=== PATIENT | female | born 1975 | race Caucasian/White ===

== ENCOUNTER 2020-10-26 21:23 | Emergency (ER) | payer OTHER ==
[~2020-10-26 21:23] MED LIST: KEFLEX500 MG PO; TRAMADOL HCL50 MG PO
[2020-10-26 21:59] LABS: BASOPHIL 0.5 % (0-2); HGB 14.8 g/dl (12.5-16.0); LYMPHOCYTE 31.3 % (15-48); MCH 30.1 pg (25.0-31.0); MCHC 32.9 g/dL (32.0-36.0); MCV 91.5 fL (78.0-100.0); MONOCYTE 8.2 % (0-12); MPV 10.3 fL (6.0-9.5); NEUTROPHIL 56.8 % (41-80); NRBC 0; PLT 249 K/uL (150-400); RBC 4.92 M/uL (4.20-5.40); RDW 13.5 % (11.5-14.0)
[2020-10-26 22:03] LABS: INR 0.96 (0.9-1.2); PROTHROMBIN TIME 12.2 SECONDS (11.8-13.4); PTT 27.3 SECONDS (24.4-34.7)
[2020-10-26 22:10] LABS: ALBUMIN 3.7 g/dL (3.4-5.0); BILIRUBIN - TOTAL 0.3 mg/dL (0.2-1.0); BUN/CREAT RATIO (CALC) 16.4 RATIO; CREATININE 1.16 mg/dL (0.51-0.95); GLOBULIN (CALCULATION) 4.2 g/dL; POTASSIUM 3.6 mmol/L (3.5-5.1); TOTAL PROTEIN 7.9 g/dL (6.4-8.2)
== END 2020-10-27 00:15 | disposition home or self-care (01) ==
LOC: FER 21:23
PROVIDERS: Emergency Medicine
DX: R07.89 Other chest pain (principal); R11.0 Nausea; I10 Essential (primary) hypertension; J45.909 Unspecified asthma, uncomplicated; Z87.19 Personal history of other diseases of the digestive system
CPT/HCPCS: 36415; 71045; 80053; 83880; 84484; 85025; 85610; 85730; 93005

== ENCOUNTER 2020-11-08 20:25 | Day surgery (SDCO) | payer OTHER ==
[~2020-11-08] VITALS: Ht 162.6 cm; Wt 112.1 kg
[2020-11-08 21:43] LABS: BASOPHIL 0.6 % (0-2); EOSINOPHIL 2.6 % (0-5); HCT 43.3 % (37.0-47.0); HGB 14.3 g/dl (12.5-16.0); MCH 30.1 pg (25.0-31.0); MCV 91.2 fL (78.0-100.0); MONOCYTE 7.4 % (0-12); MPV 10.3 fL (6.0-9.5); NEUTROPHIL 69.9 % (41-80); NRBC 0; PLT 233 K/uL (150-400); RBC 4.75 M/uL (4.20-5.40); RDW 13.4 % (11.5-14.0); WBC 8.7 K/uL (4.0-10.5)
[2020-11-08 21:53] LABS: D-DIMER < 0.27 ug/mLFEU (0.00-0.41)
[2020-11-08 22:02] LABS: INR 1.01 (0.9-1.2); PROTHROMBIN TIME 12.7 SECONDS (11.8-13.4); PTT 27.9 SECONDS (24.4-34.7)
[2020-11-08 22:11] LABS: ALBUMIN 3.9 g/dL (3.4-5.0); BILIRUBIN - TOTAL 0.4 mg/dL (0.2-1.0); BUN/CREAT RATIO (CALC) 25.8 RATIO; CREATININE 0.97 mg/dL (0.51-0.95); GLOBULIN (CALCULATION) 3.7 g/dL; POTASSIUM 3.8 mmol/L (3.5-5.1); TOTAL PROTEIN 7.6 g/dL (6.4-8.2)
[2020-11-09] MEDS ORDERED: SYNTHROID25 MCG PO (02:26)
[2020-11-09] MEDS ORDERED: HYDROCHLOROTH12.5 MG PO (02:27)
[2020-11-09] MEDS ORDERED: GUANFACINE HCL E4 MG PO (02:28)
[2020-11-09] MEDS ORDERED: CELEBREX **OUT100 MG PO (02:29)
[2020-11-09] MEDS ORDERED: VENTOLIN HFA IN18 GM INH (02:29)
[2020-11-09 07:07] LABS: HCT 41.6 % (37.0-47.0); HGB 13.7 g/dl (12.5-16.0); MCH 30.3 pg (25.0-31.0); MCHC 32.9 g/dL (32.0-36.0); MPV 10.2 fL (6.0-9.5); RBC 4.52 M/uL (4.20-5.40); RDW 13.2 % (11.5-14.0); WBC 6.9 K/uL (4.0-10.5)
[2020-11-09 07:15] LABS: CREATININE 0.75 mg/dL (0.51-0.95); FT4 (FREE T4) 1.1 ng/dL (0.76-1.46); POTASSIUM 3.6 mmol/L (3.5-5.1)
[2020-11-09 07:28] LABS: CKMB 0.6 ng/mL (0.0-3.6)
[2020-11-09] MEDS ORDERED: PROTONIX 40MG T40 MG PO (09:34)
--- NOTE | 2020-11-09 09:48 | NUR ---
0986 DISCHARG INSTRUCTIONS DISCUSSED WITH PT VERBALIZED UNDERSTANDING. IV DC'D AT THIS TIME. PT AMBULATED TO PERSONAL CAR BY [employer].
== END 2020-11-09 09:50 | disposition home or self-care (01) ==
LOC: FER 20:25 → FTCU 11-09 00:24
PROVIDERS: Emergency Medicine Emergency Medical Services; Nurse Practitioner; ADMIT Internal Medicine
DX: R07.89 Other chest pain (principal); I10 Essential (primary) hypertension; J45.909 Unspecified asthma, uncomplicated; E06.3 Autoimmune thyroiditis; E03.9 Hypothyroidism, unspecified; M19.90 Unspecified osteoarthritis, unspecified site; Z79.899 Other long term (current) drug therapy; Z88.8 Allergy status to other drugs, medicaments and biological substances; Z91.012 Allergy to eggs; Z20.822 Contact with and (suspected) exposure to COVID-19
CPT/HCPCS: 36415; 71045; 80048; 80053; 80061; 82553; 83690; 84439; 84443; 84484; 85025; 85379; 85610; 85730; 93005; G0378; J1650; U0002

== ENCOUNTER 2021-10-13 06:21 | Emergency (ER) | payer OTHER ==
[~2021-10-13 06:21] MED LIST changes: +CELEBREX **OUT100 MG PO; +GUANFACINE HCL E4 MG PO; +HYDROCHLOROTH12.5 MG PO; +PROTONIX 40MG T40 MG PO; +SYNTHROID25 MCG PO; +VENTOLIN HFA IN18 GM INH; +ZPAK PO
[2021-10-13 06:43] LABS: BASOPHIL 0.5 % (0-2); EOSINOPHIL 2.5 % (0-5); HGB 14.7 g/dl (12.5-16.0); LYMPHOCYTE 32.6 % (15-48); MCH 29.6 pg (25.0-31.0); MCHC 33.4 g/dL (32.0-36.0); MCV 88.5 fL (78.0-100.0); MONOCYTE 7.3 % (0-12); NEUTROPHIL 56.7 % (41-80); NRBC 0; PLT 299 K/uL (150-400); RBC 4.97 M/uL (4.20-5.40); RDW 13.8 % (11.5-14.0); WBC 7.7 K/uL (4.0-10.5)
[2021-10-13 07:07] LABS: ALBUMIN 3.8 g/dL (3.4-5.0); BILIRUBIN - TOTAL 0.4 mg/dL (0.2-1.0); CREATININE 1.06 mg/dL (0.51-0.95); MAGNESIUM 1.9 mg/dL (1.8-2.4); POTASSIUM 2.8 mmol/L (3.5-5.1); TOTAL PROTEIN 7.8 g/dL (6.4-8.2)
[2021-10-13 07:18] LABS: INR 0.96 (0.9-1.2); PROTHROMBIN TIME 12.5 SECONDS (11.9-13.9); PTT 26.4 SECONDS (24.9-34.6)
[2021-10-13] MEDS ORDERED: PREDNISONE 20MG20 MG PO (07:38)
[2021-10-13] MEDS ORDERED: K-TAB ER20 MEQ PO (07:38)
[2021-10-13 07:52] LABS: BILIRUBIN NEGATIVE (NEGATIVE); BLOOD 1+ Ery/uL (NEGATIVE); CLARITY CLEAR (CLEAR); COLOR YELLOW (YELLOW); GLUCOSE (U) NORMAL (NORMAL); LEUKOCYTES NEGATIVE Leu/uL (NEGATIVE); NITRITE NEGATIVE (NEGATIVE); PROTEIN NEGATIVE (NEGATIVE); SPECIFIC GRAVITY <=1.005 (1.001-1.030); UROBILINOGEN 0.2 mg/dL (0.2-1.0)
[2021-10-13 07:53] LABS: CORONAVIRUS 2019 SARS-COV-2 NEGATIVE (NEGATIVE); INFLUENZA A NAA NEGATIVE (NEGATIVE)
[2021-10-13 08:01] LABS: AMPHETAMINES NEGATIVE (NEGATIVE); BARBITURATES NEGATIVE (NEGATIVE); ECSTASY (MDMA) NEGATIVE (NEGATIVE); MARIJUANA (THC) NEGATIVE (NEGATIVE); METHADONE NEGATIVE (NEGATIVE); OPIATES NEGATIVE (NEGATIVE); OXYCODONE NEGATIVE (NEGATIVE)
[2021-10-13 08:08] LABS: URINARY WBC RARE
== END 2021-10-13 07:57 | disposition home or self-care (01) ==
LOC: FER 06:21
PROVIDERS: Internal Medicine
DX: T78.1XXA Other adverse food reactions, not elsewhere classified, initial encounter (principal); R21 Rash and other nonspecific skin eruption; R42 Dizziness and giddiness; R06.02 Shortness of breath; E87.6 Hypokalemia; J45.909 Unspecified asthma, uncomplicated; Z20.822 Contact with and (suspected) exposure to COVID-19; Z88.6 Allergy status to analgesic agent; Z91.012 Allergy to eggs; Z91.018 Allergy to other foods
CPT/HCPCS: 36415; 71045; 80053; 80305; 81001; 83735; 84145; 84484; 85025; 85379; 85610; 85730; 93005; 94640; J0171; J1200; J2930; J7030; U0002